=== PATIENT | female | born 1955 | race Caucasian/White ===

== ENCOUNTER → 2017-04-02 | Outpatient (CLI) | payer MEDICAID ==
[~2017-04-02] MED LIST: AEROSOL THERAPY1 DEV XX; ALBUTEROL2.5 MG/NEB INH; CEFTIN500 MG PO; PREDNISONE 20MG20 MG PO; TESSALON PERLE100 M1 PO
--- NOTE | 2017-04-03 06:07 | RADIOLOGY REPORT PS360 ---
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 Axial, sagittal, and coronal reformatted images are generated and reviewed. COMPARISON: 08/08/2015 FINDINGS: The study was tailored for the pulmonary arteries. There is diffuse aneurysmal dilatation of the main pulmonary artery trunk as well as the proximal aspect of both right and left main pulmonary arteries. On the sagittal projection the main pulmonary artery measures up to 6 cm in AP dimension not significant change. The maximum transverse dimension of the main pulmonary trunk is 4.9 cm unchanged. Proximal right main pulmonary artery measures up to 3.8 cm and proximal left pulmonary trunk measures up to 3.2 cm. These are unchanged. No obvious pulmonary embolus. There are coronary artery calcifications. The heart size is normal. There is mild ectasia of the proximal ascending aorta measuring up to 4.2 cm unchanged. There is mild dilatation of the proximal descending thoracic aorta measuring up to 3.7 cm unchanged. There are centrilobular emphysematous changes with hyperinflation and bronchial thickening consistent with obstructive chronic bronchitis. Biapical pleural thickening. There are scattered faint nodular densities in the lungs which appear stable measuring up to 4 mm in the right upper lobe. No infiltrates or effusions. Calcified granulomas present in the left lower lobe. There remains some increased soft tissue density in the right hilum is unchanged. IMPRESSION: 1. Overall no change in the diffuse aneurysmal dilatation of the main pulmonary artery and right and left main pulmonary artery trunks. 2. No change mild aneurysmal dilatation of the thoracic aorta. 3. Centrilobular emphysematous changes with obstructive chronic bronchitis and scattered small pulmonary nodules which appear stable
--- NOTE | 2017-04-03 16:57 | RADIOLOGY REPORT PS360 ---
PROCEDURE: 2-D M-mode and color Doppler study INDICATIONS FOR THE TEST: Chest pain COPDX Heart Murmur Tobacco SmokingEX Palpitations Fatigue Syncope Edema HypertensionXDiabetes Mellitus Rheumatic Fever SOB ALFARO Obesity HyperlipidemiaX Family History HD Additional History ASHD PATIENT INFORMATION HEIGHT: 67 WEIGHT:140 GENDER: Female B/P:122/78 2-D/M-MODE INTERPRETATION: 2-D MEASUREMENTS OBSERVED VALUES IN CMS Right Ventricular Dimension (RVDd) 2.0 Interventricular Septum (Thickness)(IVsd) .8 Left Ventricular Internal Dimensions(LVIDd) 4.6 Left Ventricular Posterior Wall (Thickness)(LVPWd) 1.0 Aortic Root 3.3 Aortic Cusp Separation .9 Left Atrial Dimensions (LAD) 1.9 2D 1. Left atrium is mildly enlarged, left ventricle is normal size, there is mild qualitative concentric left ventricular hypertrophy, visually estimated ejection fraction 50% with no obvious regional wall motion abnormality. 2. The right atrium is mildly enlarged, right ventricle is normal size and contractility. 3. The aortic valve is thickened and calcified, leaflet continue to display mobility. 4. The mitral and tricuspid valve leaflets are minimally thickened. 5. The pulmonic valve is poorly visualized. 6. No significant pericardial effusion noted. DOPPLER INTERROGATION: Doppler interrogation of the aortic, mitral and tricuspid valve reveals presence of mild mitral and tricuspid regurgitation, tricuspid regurgitant jet velocity insufficient for calculation of the right ventricular systolic pressure, trace aortic insufficiency also seen. Diastolic parameters are inconclusive. CONCLUSION: 1. Biatrial enlargement, normal left ventricular size, mild qualitative concentric left ventricular hypertrophy, visually estimated ejection fraction of 55% with no obvious regional wall motion abnormality, diastolic parameters are inconclusive. 2. Trace aortic, mild mitral and tricuspid regurgitation. 3. No significant pericardial effusion noted.
== END ==
LOC: RT 07:57 → RAD 09:45
DX: R10.11 Right upper quadrant pain (principal); I10 Essential (primary) hypertension; I28.9 Disease of pulmonary vessels, unspecified; I25.10 Atherosclerotic heart disease of native coronary artery without angina pectoris; J44.9 Chronic obstructive pulmonary disease, unspecified
CPT/HCPCS: Q9967